=== PATIENT | male | born 2000 | race Hispanic/Latino ===

== ENCOUNTER 2025-01-31 14:00 | Emergency (ER) | payer OTHER, SELFPAY ==
--- NOTE | ~2025-01-31 | CT_ITS ---
EXAMINATION: CT abdomen pelvis w con DATE: 01/31/2025 17:59 INDICATION: Nausea, vomiting and leukocytosis TECHNIQUE: Computed tomography (CT) of the abdomen and pelvis was performed without intravenous contr ast. The dose-length product was 309.77 mGy-cm. Automated exposure control and iterative reconstructi on technique were employed. COMPARISON: None. FINDINGS: Lung bases are unremarkable. Heart size normal. No significant pleural or pericardial effus ion. The liver, spleen, pancreas, adrenal glands and kidneys are unremarkable. No significant vascula r abnormality. Small hiatal hernia. No lymphadenopathy. Gallbladder is present. Normal appendix. No a bnormal pelvic masses or fluid collections. There is mild diffuse mural thickening of the colon, susp icious for colitis, most likely infectious/inflammatory. No evidence for perforation or abscess. No a cute osseous abnormality. IMPRESSION: 1. Mild diffuse thickening of the colon, suspicious for colitis, most likely infectious or inflammato ry. Reviewed, dictated and finalized at location A. IMPRESSION: 1. Mild diffuse thickening of the colon, suspicious for colitis, most likely in fectious or inflammatory.
[2025-01-31 14:01] VITALS: BP 142/89; PULSE 58; RESP 18; TEMP 36.4; O2SAT 100
--- OUTSIDE RECORDS SUMMARY | 2025-01-31 15:09 | XMS_ITS | Clinical Summary ---
Author Organization [facility] Address [address] [place] [address] Care Team Providers Care Lining Finisher Name Role Phone RadhaLilibeth Marcelle MADISON Primary Care Provider [phone] Source Comments [facility],non-owned Affiliates and Associated Physician Practices is amultiple site organization consisting of ambulatory clinics and hospital sitesin [place], [place], [place] and [place]. This disclosure is being madepursuant to the Care Everywhere program and may not contain all information available regarding this patient. Last updated 18.[facility] [place] Allergies No known active allergies Medications * Be aware that medications may not be up to date on this document. Alwaysverify current medications with the patient. 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 Gender Identity Not on file Sexual Orientation Not on file Plan of Treatment Health Maintenance Due Date Last Done Comments HIV SCREENING 09/27/2015 HPV VACCINE (1 - Male 3-dose series) 09/27/2015 HEPATITIS C SCREENING 09/22/2018 DTAP/TDAP/TD VACCINES (1 - Tdap) 09/27/2019 HEPATITIS B VACCINE (1 of 3 - 19+ 3-dose series) 09/27/2019 COVID-19 VACCINE (1 - 2023-2 5 season) 2024 DEPRESSION SCREENING 06/16/2024 INFLUENZA VACCINE (#1) 2025 ZOSTER VACCINE (1 of 2) 2050 HIB VACCINE Aged Out No longer eligi ble based on patient's age to complete this topic MENINGOCOCCAL (Group B) VACC INE SHARED DECISION-MAKING Aged Out No longer eligibl e based on patient's age to complete this topic MENINGOCOCCAL GROUPS A/C/Y/W VACCINE Aged Out No longer eligible b ased on patient's age to complete this topic PNEUMOCOCCAL VACCINE Aged Out No long er eligible based on patient's age to complete this topic Insurance [facility] Care Teams Lining Finisher Relationship Specialty Start Date End Date Lilibeth Garcia DO PCP - General Pediatrics 09/17/16
--- OUTSIDE RECORDS SUMMARY | 2025-01-31 15:09 | XMS_ITS | Clinical Summary ---
Author Organization [facility] al Address [address] [place] [address] Care Team Providers Care Crane Mechanic Name Role Phone Miscellaneous, Not In File Primary Care Provider Unavailable Allergies No known active allergies Medications ibuprofen (ADVIL,MOTRIN) 400 mg tablet Take 1-2 tablets (400-800 mg total) by mouth 3 (three) times a day as needed for pain (1 tablet for mild to moderate pain or 2 tablets for severe pain) 30 tablet 0 Active acetaminophen 500 mg capsule Take 1,000 mg by mouth every 6 (six) hours as needed Active ondansetron ODT (ZOFRAN-ODT) 4 mg disintegrating tablet Take 1 tablet (4 mg total) by mouth every 8 (eight) hours as needed for nausea or vomiting 20 tablet 4 Active Active Problems No known active problems Social History Tobacco Use Types Packs/Day Years Used Date Smoking Tobacco: Every Day Cigarettes Tobacco Cessation:Ready to Q uit: No; Counseling Given: Yes Alcohol Use Standard Drinks/Week Comments Yes 12 (1 standard drink = 0.6 oz pu re alcohol) Personal Safety Answer Date Recorded Have you ever been in or are you currently in a harmful physical or emotional relationship or is someone making you feel afraid or unsafe? 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 Gender Identity Not on file Sexual Orientation Not on file Obstetrics History Last Filed Vital Signs Vital Sign Reading Time Taken Comments Blood Pressure 116/76 10/31/2023 12:00 AM CDT Pulse 67 10/31/2023 12:03 AM CDT Temperature 36.2 C (97.2 F) 10/30/2023 5:38 PM CDT Respiratory Rate 18 10/31/2023 12:00 AM CDT Oxygen Saturation 100% 10/31/2023 12:03 AM CDT Inhaled Oxygen Concentration - - Weight 81.6 kg (180 lb) 10/30/2023 5:38 PM CDT Height 180.3 cm (5' 11) 10/30/2023 5:38 PM CDT Body Mass Index 25.1 10/30/2023 5:38 PM CDT Plan of Treatment Health Maintenance Due Date Last Done Comments Depression Screening 2000 Hepatitis C Screening 2000 Pneumococcal vaccine <65 (1 of 1 - PPSV23, PCV20, or PCV21) 03/26/2007 01/29/2007, 05/12/2002, 03/24/2002, Additional history exists Regular Well Visit/Exam 18-64 2018 DTaP/Tdap/Td Vaccine (6 - Td or Tdap) 01/29/2023 01/29/2013, 01/29/2007, 05/12/2002, Additional history exists Influenza Vaccine (#1) 2025 7, 05/17/2015, 04/07/2009 Hepatitis B Screening Completed 05/12/2002 , 10/26/2001, 10/26/2001, Additional history exists Varicella Vaccines Completed 01/29/2007, 05/12/2002 HPV Vaccines Completed 02/15/2016, 05/17/2015 Insurance [facility] Care Teams Crane Mechanic Relationship Specialty Start Date End Date Miscellaneous, Not In File PCP - General 10/30/23
--- NOTE | 2025-01-31 15:22 | ED_ITS ---
HPI - Nausea/Vomiting/Diarrhea General Chief complaint: Nausea/Vomiting/Diarrhea <Nettie Navas PA-C - Last Filed: 02/01/25 09:50> Stated complaint: n/v <Nettie Navas PA-C - Last Filed: 02/01/25 09:50> Time Seen by Provider: 01/31/25 15:22 <Nettie Navas PA-C - Last Filed: 02/01/25 09:50> Focused HPI: This is a 24 year old male that presents to the ER for nausea, vomiting. Ongoing since earlier this morning. Reports epigastric abdominal pain. Reports eating spicy food before bed last night. Reports diarrhea. Denies fevers, dysuria. GENERAL: Uncomfortable, well-nourished, and in no acute distress. HEAD: Normocephalic, atraumatic. CHEST: Clear to auscultation. ?No respiratory distress. HEART: Regular rate and rhythm.? NEURO: ?Alert and oriented x3. Patient screened in triage and initial orders placed.? ?Additional care and disposition to be based upon?diagnostic testing and treatment. <Nettie Navas PA-C - Last Filed: 02/01/25 09:50> Focused HPI: This is a 24 year old male that presents to the ER for nausea, vomiting. Ongoing since earlier this morning. Reports epigastric abdominal pain. Reports eating spicy food before bed last night. Reports diarrhea. Denies fevers, dysuria. GENERAL: Uncomfortable, well-nourished, and in no acute distress. HEAD: Normocephalic, atraumatic. CHEST: Clear to auscultation. ?No respiratory distress. HEART: Regular rate and rhythm.? NEURO: ?Alert and oriented x3. Patient screened in triage and initial orders placed.? ?Additional care and disposition to be based upon?diagnostic testing and treatment. <DEWAYNE Landa Last Filed: 01/31/25 21:04> Source: patient <DEWAYNE Landa Last Filed: 01/31/25 21:04> Mode of arrival: ambulatory <DEWAYNE Landa Last Filed: 01/31/25 21:04> Limitations: no limitations <DEWAYNE Landa Last Filed: 01/31/25 21:04> History of Present Illness HPI Narrative: Agree with above HPI. Reports symptoms began around 2:00 a.m.. Reports mucousy stool. Denies rectal bleeding or melena. Does report having similar episodes of vomiting in the past. He is a daily marijuana user. <DEWAYNE Landa Last Filed: 01/31/25 21:04> Related Data Allergies/Adverse reactions: Allergies Allergy/AdvReac Type Severity Reaction Status Date / Time No Known Allergies Allergy Verified 01/31/25 16:32 <DEWAYNE Borjas Last Filed: 02/01/25 09:50> Review of Systems 2 Review of Systems: All systems reviewed & are unremarkable except as noted in HPI. <DEWAYNE Landa Last Filed: 01/31/25 21:04> All systems reviewed & are unremarkable except as noted in HPI and below < DEWAYNE Landa Last Filed: 01/31/25 21:04> Exam 2 Narrative: GENERAL: Well appearing, well-nourished, non-toxic, in no acute distress. HEAD: Normocephalic, atraumatic. RESPIRATORY: Airway patent, respirations nonlabored. Clear to auscultation bilaterally, no rales, rhonchi, wheezing. CARDIOVASCULAR: Regular rate and rhythm without murmurs, rubs, or gallops. ABDOMINAL: Soft, mild diffuse tenderness, no significant focal tenderness, nondistended. Normoactive BS. MUSCULOSKELETAL: Moves all extremities. No gross deformities. SKIN: Warm, dry, normal color. NEURO: A&O X3. Speech clear. No ataxic movements. PSYCHIATRIC: Appropriate mood and affect. Normal interaction. <DEWAYNE Landa Last Filed: 01/31/25 21:04> Course Vital Signs Vital signs: Vital Signs Temperature 97.5 F L 01/31/25 14:01 Pulse Rate 58 L 01/31/25 14:01 Respiratory Rate 18 01/31/25 14:01 Blood Pressure 142/89 H 01/31/25 14:01 Pulse Oximetry 100 01/31/25 14:01 Oxygen Delivery Room Air 01/31/25 14:01 Temperature 97.5 F L 01/31/25 14:01 Pulse Rate 60 01/31/25 16:36 Respiratory Rate 18 01/31/25 14:01 Blood Pressure 147/81 H 01/31/25 16:36 Pulse Oximetry 100 01/31/25 16:12 Oxygen Delivery Room Air 01/31/25 14:01 <Nettie Navas PA-C - Last Filed: 02/01/25 09:50> Vital Signs Temperature 97.5 F L 01/31/25 14:01 Pulse Rate 58 L 01/31/25 14:01 Respiratory Rate 18 01/31/25 14:01 Blood Pressure 142/89 H 01/31/25 14:01 Pulse Oximetry 100 01/31/25 14:01 Oxygen Delivery Room Air 01/31/25 14:01 Temperature 97.5 F L 01/31/25 14:01 Pulse Rate 60 01/31/25 16:36 Respiratory Rate 18 01/31/25 14:01 Blood Pressure 147/81 H 01/31/25 16:36 Pulse Oximetry 100 01/31/25 16:12 Oxygen Delivery Room Air 01/31/25 14:01 <Kiana Walters PA-C - Last Filed: 01/31/25 21:04> MDM - Nausea/Vomiting/Diarrhea MDM Narrative Medical decision making narrative: Patient presented to ED with nausea, vomiting onset this morning around 2:00 a.m.. Associated with some mucousy diarrhea. History of similar symptoms. Is a daily marijuana smoker. Vital signs are stable upon arrival. Patient was given morphine, Zofran, Pepcid in in triage. By the time of my evaluation, he is feeling much improved. Given 2 L of fluid. Laboratory studies with leukocytosis of 15.7. Neutrophil predominance. No bandemia. CMP with anion gap of 15, bicarb 22. Consistent with dehydration. Kidney function is stable. Electrolytes are otherwise stable. Normal LFTs and lipase. UA with evidence of dehydration. Urine drug screen positive for opioids although patient did receive morphine here. Also positive for cocaine and cannabinoids. I did discuss possibility of cannabinoid induced hyperemesis with patient. He does not believe the marijuana is causing his symptoms. CT scan of the abdomen/pelvis was obtained and showing findings consistent with colitis, infectious versus inflammatory. Given severity of symptoms with leukocytosis, will cover for infectious etiology with antibiotics. Patient initially feeling much better with supportive therapy. However attempted p.o. challenge with water and patient in report recurrent vomiting. Given Haldol. On repeat evaluation, he is feeling improved. Able to tolerate p.o. intake. Feels comfortable discharge home at this time. Will discharge with Bentyl, Zofran, antibiotics. Advised to discontinue marijuana use. Given strict return precautions. Patient in agreement with plan. Discharged in stable condition. <Kiana Walters PA-C - Last Filed: 01/31/25 21:04> Medical Records Attestation: I reviewed the patient's medical records. <Kiana Walters PA-C - Last Filed: 01/31/25 21:04> Lab Data Attestation: I reviewed the patient's lab results. <Kiana Walters PA-C - Last Filed: 01/31/25 21:04> Result diagrams: 01/31/25 15:47 01/31/25 15:47 <Nettie Navas PA-C - Last Filed: 02/01/25 09:50> Labs: Lab Results 01/31/25 01/31/25 Range/Units 15:47 18:23 WBC 15.7 H (4.5-10.0) K/mm3 RBC 5.43 (4.6-6.20) M/mm3 Hgb 16.7 (14.0-18.0) g/dL Hct 46.8 (42.0-52.0) % MCV 86.2 (80-100) fl MCH 30.8 (26-34) pg MCHC 35.7 (32-36) g/dl RDW 12.8 (11.5-14.5) % Plt Count 321 (150-375) k/mm3 MPV 10.0 (7.4-10.4) fl Immature Gran % (Auto) 0.5 (0-0.5) % Neut % (Auto) 91.4 H (45.5-73.1) % Lymph % (Auto) 5.0 L (18.3-44.2) % Newberry % (Auto) 2.8 (2.6-8.5) % Eos % (Auto) 0.0 (0-4.4) % Baso % (Auto) 0.3 (0.2-1.2) % Lymph # (Auto) 0.79 L (0.9-3.2) K/mm3 Newberry # (Auto) 0.4 (0.1-0.6) K/mm3 Eos # (Auto) 0.0 (0-0.3) K/mm3 Baso # (Auto) 0.0 (0.0-0.1) K/mm3 Abs Immat Gran (auto) 0.08 H (0.00-0.031) K/mm3 Absolute Neuts (auto) 14.3 H (1.3-6.7) K/mm3 Absolute Nucleated RBC 0.000 (0.0-0.012) K/mm3 Nucleated RBC % 0.0 (0.0-0.2) % Sodium 138 (137-145) mmol/L Potassium 3.6 (3.4-5.0) mmol/L Chloride 101 (98-107) mmol/L Carbon Dioxide 22 (22-30) mmol/L Anion Gap 15 H (4-12) mmol/L BUN 14 (9-20) mg/dL Creatinine 0.93 (0.7-1.3) mg/dL Estim Creat Clear Calc 108 ml/min Estimated GFR > 60 (59 - ) Glucose 125 H (65-110) mg/dL Calcium 10.4 H (8.4-10.2) mg/dL Total Bilirubin 1.1 (0.2-1.3) mg/dL AST 32 (17-59) U/L ALT 29 (6-50) U/L Alkaline Phosphatase 83 (38-126) U/L Total Protein 8.8 H (6.3-8.2) g/dL Albumin 5.1 (3.5-5.1) g/dL Lipase 36 (23-300) U/L Urine Color Yellow (Yellow) Urine Appearance Clear (Clear) Urine pH >=9.0 H (5.0-9.0) Ur Specific [place] > 1.045 H (1.001-1.035) Urine Protein 1+ H (Negative) mg/dL Urine Glucose (UA) Negative (Negative) mg/dL Urine Ketones 2+ H (Negative) mg/dL Ur Blood (Man) Negative (Negative) Urine Nitrate Negative (Negative) Urine Bilirubin Negative (Negative) Urine Urobilinogen 0.2 (<2.0) mg/dL Leukocyte Esterase Rfl Negative (Negative) TOM/UL Urine RBC 0-2 (0-2) /hpf Urine WBC 0-5 (0-3) /hpf Ur Squamous Epith Cells None seen (Few) /hpf Urine Bacteria None seen /hpf Urine Casts 0-2 Urine Opiates Screen Positive A (Negative) Urine Methadone Screen Negative (Negative) Ur Barbiturates Screen Negative (Negative) Ur Phencyclidine Scrn Negative (Negative) Ur Amphetamine Screen Negative (Negative) U Benzodiazepines Scrn Negative (Negative) Urine Cocaine Screen Positive A (Negative) U Cannabinoids Screen Positive A (Negative) <Nettie Navas PA-C - Last Filed: 02/01/25 09:50> Lab Results 01/31/25 01/31/25 Range/Units 15:47 18:23 WBC 15.7 H (4.5-10.0) K/mm3 RBC 5.43 (4.6-6.20) M/mm3 Hgb 16.7 (14.0-18.0) g/dL Hct 46.8 (42.0-52.0) % MCV 86.2 (80-100) fl MCH 30.8 (26-34) pg MCHC 35.7 (32-36) g/dl RDW 12.8 (11.5-14.5) % Plt Count 321 (150-375) k/mm3 MPV 10.0 (7.4-10.4) fl Immature Gran % (Auto) 0.5 (0-0.5) % Neut % (Auto) 91.4 H (45.5-73.1) % Lymph % (Auto) 5.0 L (18.3-44.2) % Newberry % (Auto) 2.8 (2.6-8.5) % Eos % (Auto) 0.0 (0-4.4) % Baso % (Auto) 0.3 (0.2-1.2) % Lymph # (Auto) 0.79 L (0.9-3.2) K/mm3 Newberry # (Auto) 0.4 (0.1-0.6) K/mm3 Eos # (Auto) 0.0 (0-0.3) K/mm3 Baso # (Auto) 0.0 (0.0-0.1) K/mm3 Abs Immat Gran (auto) 0.08 H (0.00-0.031) K/mm3 Absolute Neuts (auto) 14.3 H (1.3-6.7) K/mm3 Absolute Nucleated RBC 0.000 (0.0-0.012) K/mm3 Nucleated RBC % 0.0 (0.0-0.2) % Sodium 138 (137-145) mmol/L Potassium 3.6 (3.4-5.0) mmol/L Chloride 101 (98-107) mmol/L Carbon Dioxide 22 (22-30) mmol/L Anion Gap 15 H (4-12) mmol/L BUN 14 (9-20) mg/dL Creatinine 0.93 (0.7-1.3) mg/dL Estim Creat Clear Calc 108 ml/min Estimated GFR > 60 (59 - ) Glucose 125 H (65-110) mg/dL Calcium 10.4 H (8.4-10.2) mg/dL Total Bilirubin 1.1 (0.2-1.3) mg/dL AST 32 (17-59) U/L ALT 29 (6-50) U/L Alkaline Phosphatase 83 (38-126) U/L Total Protein 8.8 H (6.3-8.2) g/dL Albumin 5.1 (3.5-5.1) g/dL Lipase 36 (23-300) U/L Urine Color Yellow (Yellow) Urine Appearance Clear (Clear) Urine pH >=9.0 H (5.0-9.0) Ur Specific [place] > 1.045 H (1.001-1.035) Urine Protein 1+ H (Negative) mg/dL Urine Glucose (UA) Negative (Negative) mg/dL Urine Ketones 2+ H (Negative) mg/dL Ur Blood (Man) Negative (Negative) Urine Nitrate Negative (Negative) Urine Bilirubin Negative (Negative) Urine Urobilinogen 0.2 (<2.0) mg/dL Leukocyte Esterase Rfl Negative (Negative) TOM/UL Urine RBC 0-2 (0-2) /hpf Urine WBC 0-5 (0-3) /hpf Ur Squamous Epith Cells None seen (Few) /hpf Urine Bacteria None seen /hpf Urine Casts 0-2 Urine Opiates Screen Positive A (Negative) Urine Methadone Screen Negative (Negative) Ur Barbiturates Screen Negative (Negative) Ur Phencyclidine Scrn Negative (Negative) Ur Amphetamine Screen Negative (Negative) U Benzodiazepines Scrn Negative (Negative) Urine Cocaine Screen Positive A (Negative) U Cannabinoids Screen Positive A (Negative) <DEWAYNE Landa Last Filed: 01/31/25 21:04> Imaging Data Attestation: I personally reviewed and interpreted this imaging study as follows: < DEWAYNE Landa Last Filed: 01/31/25 21:04> Radiologist's impression: ITS Impressions Abdomen/Pelvis CT 01/31/25 18:00 IMPRESSION: 1. Mild diffuse thickening of the colon, suspicious for colitis, most likely infectious or inflammatory. <EDWAYNE Landa Last Filed: 01/31/25 21:04> Critical Care Time Critical Care Time Critical Care Time: No <DEWAYNE Borjas Last Filed: 02/01/25 09:50> Discharge Plan Discharge Clinical Impression: Colitis Nausea and vomiting Qualifiers: Vomiting type: unspecified Qualified Code(s): R11.2 - Nausea with vomiting, unspecified <Nettie Navas PA-C - Last Filed: 02/01/25 09:50> Patient Disposition: Home <DEWAYNE Borjas Last Filed: 02/01/25 09:50> Condition: Stable <DEWAYNE Borjas Last Filed: 02/01/25 09:50> Instructions: Antibiotic Form, Dehydration (ED), Gastroenteritis (ED), Acute Nausea and Vomiting (ED) <DEWAYNE Borjas Last Filed: 02/01/25 09:50> Additional Instructions: Take antibiotics as prescribed for colitis. Utilize zofran as needed for further nausea. Recommend Tylenol, Bentyl as needed for further abdominal discomfort. Increase fluid intake. Recommend electrolyte rich fluids, gatorade, pedialyte, body armour. Recommend clear liquids or bland diet until symptoms improve, such as bananas, rice, applesauce, toast, or crackers. Follow up with your primary care doctor for further evaluation. Return to the ED if you experience worsening or severe symptoms, unable to keep down food or drink, severe pain, fevers, rectal bleeding, vomiting blood, or any other symptoms of concern. Avoid further marijuana use as this is likely contributing to your symptoms. <Nettie Navas PA-C - Last Filed: 02/01/25 09:50> Patient Language: Armenian <Nettie Navas PA-C - Last Filed: 02/01/25 09:50> Prescriptions: New dicyclomine 20 mg tablet 20 mg PO TID PRN (Reason: Abdominal Discomfort) Qty: 15 0RF ondansetron 4 mg tablet,disintegrating 4 mg PO Q8H PRN (Reason: nausea and vomiting) Qty: 15 0RF amoxicillin-pot clavulanate 875-125 mg tablet 1 tablet PO Q12H 7 Days Qty: 14 0RF <DEWAYNE Borjas Last Filed: 02/01/25 09:50> Follow-up/Referrals: PHYSICIAN NOT ON STAFF,NONSTAFF [Primary Care Provider] <Nettie Navas PA-C - Last Filed: 02/01/25 09:50> Time of Disposition: 20:17 <DEAWYNE Borjas Last Filed: 02/01/25 09:50> 20:17 <DEWAYNE Landa Last Filed: 01/31/25 21:04>
[2025-01-31] MEDS: FAMOTIDINE 20 MG/2 ML VIAL IV PUSH (15:43)
[2025-01-31] MEDS: ONDANSETRON INJ 4 MG/2 ML VIAL IV PUSH (15:43)
[2025-01-31 16:07] LABS: Hematocrit 46.8 % (42.0-52.0); Hemoglobin 16.7 g/dL (14.0-18.0); Immature Granulocyte Percent A 0.5 % (0-0.5); Lymphocytes Absolute Auto 0.79 K/mm3 (0.9-3.2); Mean Corpuscular HGB Conc 35.7 g/dl (32-36); Mean Corpuscular Hemoglobin 30.8 pg (26-34); Mean Corpuscular Volume 86.2 fl (80-100); Nucleated Red Blood Cells Absolute Auto 0.000 K/mm3 (0.0-0.012); Nucleated Red Blood Cells Perc 0.0 % (0.0-0.2); Platelet Count Result 321 k/mm3 (150-375); Red Blood Count 5.43 M/mm3 (4.6-6.20); White Blood Count 15.7 K/mm3 (4.5-10.0)
[2025-01-31 16:12] VITALS: BP 137/97; PULSE 67; O2SAT 100
[2025-01-31 16:23] LABS: Alanine Aminotransferase 29 U/L (6-50); Albumin Level 5.1 g/dL (3.5-5.1); Alkaline Phosphatase 83 U/L (38-126); Anion Gap 15 mmol/L (4-12); Aspartate Amino Transferase 32 U/L (17-59); Bilirubin,Total 1.1 mg/dL (0.2-1.3); Blood Urea Nitrogen 14 mg/dL (9-20); Calcium 10.4 mg/dL (8.4-10.2); Carbon Dioxide 22 mmol/L (22-30); Chloride 101 mmol/L (98-107); Estimated CRCL calculation 108 ml/min; Estimated Glomerular Filt Rate > 60; Glucose 125 mg/dL (65-110); Lipase 36 U/L (23-300); Potassium 3.6 mmol/L (3.4-5.0); Sodium 138 mmol/L (137-145); Total Protein 8.8 g/dL (6.3-8.2)
[2025-01-31 16:34] VITALS: BP 151/127; PULSE 51
[2025-01-31 16:35] VITALS: BP 116/95; PULSE 59
[2025-01-31 16:36] VITALS: BP 147/81; PULSE 60
[2025-01-31] MEDS: SODIUM CHLORIDE 0.9% IV 1,000 ML 999 ML IV CONT ×2 (16:51→17:50)
[2025-01-31] MEDS: MORPHINE SULFATE (*CRX) 4 MG/ML INJ IV PUSH (16:51)
--- OUTSIDE RECORDS SUMMARY | 2025-01-31 17:55 | XMS_ITS | Clinical Summary ---
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
--- OUTSIDE RECORDS SUMMARY | 2025-01-31 17:55 | XMS_ITS | Clinical Summary ---
Author Organization [facility] Address [address] [place] [address] Care Team Providers Care Textile Designer Name Role Phone RadhaLilibeth Marcelle MADISON Primary Care Provider [phone] Source Comments [facility],non-owned Affiliates and Associated Physician Practices is amultiple site organization consisting of ambulatory clinics and hospital sitesin [place], [place], [place] and [place]. This disclosure is being madepursuant to the Care Everywhere program and may not contain all information available regarding this patient. 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
[2025-01-31] MEDS: HALOPERIDOL LACTATE 5 MG/ML VIAL IM (19:19)
[2025-01-31 19:20] LABS: Cannabinoid Screen Urine Positive (Negative)
[2025-01-31 19:38] LABS: Add Urine Microscopic? YES; Appearance Urine Clear (Clear); Glucose Urine UA Negative (Negative); Leukocyte Esterase Ur Negative LEU/UL (Negative); Nitrate Urine Negative (Negative); Non Pathogenic Casts 0-2; Specific Grav Ur > 1.045 (1.001-1.035)
== END 2025-01-31 20:59 | disposition home or self-care (01) ==
PROVIDERS: Physician Assistant; Emergency Provider Physician Assistant
DX: K52.9 Noninfective gastroenteritis and colitis, unspecified (principal)
CPT/HCPCS: 36415; 74177; 80053; 80307; 81001; 83690; 85025; 96361; 96372; 96374; 96375; 99284; J1630; J2270; J2405; J7030; Q9967